=== PATIENT | female | born 1975 ===

== ENCOUNTER 2017-02-03 15:01 | Emergency (ER) | payer MEDICAID, OTHER ==
[2017-02-03 15:01] VITALS: BMI 28.5
[2017-02-03 15:08] VITALS: BP 143/83; PULSE 66; RESP 15; TEMP 98.1; O2SAT 99
--- NOTE | 2017-02-03 15:16 | C.PDOC ---
History Of Present Illness 41 Y/O FEMALE C/O RIGHT LOWER BACK PAIN FOR 3 DAYS. PT REPORTS SIMILAR SYMPTOMS IN THE PAST "GETS IT ONCE IN A WHILE" NOTES SHE STANDS ON HER FEET ALL DAY AND OCCASIONALLY LIFTS HEAVY THINGS. NOTES PAIN RADIATES TO SIDE AND FRONT RIGHT THIGH. UNABLE TO SIT NORMALLY; WORSE WIHT MOVEMENT. DENIES ANY OTHER SYMPTOMS. LIMITED RELIEF WITH ALEVE AND "MUSCLE RELAXANT" GIVEN TO HER BEFORE. NO MEDS TAKEN MOUNTER CLARINETS. Time Seen by Provider: 02/03/17 15:07 Chief Complaint (Nursing): Back Pain History Per: Patient History/Exam Limitations: no limitations Onset/Duration Of Symptoms: Days Current Symptoms Are (Timing): Still Present Quality Of Discomfort: "Pain" Previous Symptoms: None Associated Symptoms: denies: New Weakness, New Numbness Exacerbating Factor(s): Movement Recent travel outside of the [place]: No Past Medical History Reviewed: Historical Data, Nursing Documentation, Vital Signs Vital Signs: Last Vital Signs Temp 98.1 F 02/03/17 15:07 Pulse 66 02/03/17 15:07 Resp 15 02/03/17 15:07 BP 143/83 02/03/17 15:07 Pulse Ox 99 02/03/17 15:16 - Medical History PMH: Gall Bladder Disease (10 yrs ago w/ Sx done) Surgical History: Cholecystectomy (10 years ago) Family History: States: Unknown Family Hx - Social History Hx Tobacco Use: Yes (1/2 pack per day x 15 years) Hx Alcohol Use: Yes Hx Substance Use: No - Immunization History Hx Tetanus Toxoid Vaccination: Yes Hx Influenza Vaccination: Yes Hx Pneumococcal Vaccination: Yes Review Of Systems Except As Marked, All Systems Reviewed And Found Negative. Constitutional: Negative for: Fever, Chills Cardiovascular: Negative for: Chest Pain Respiratory: Negative for: Cough, Shortness of Breath, Wheezing Gastrointestinal: Negative for: Nausea, Vomiting, Abdominal Pain Musculoskeletal: Positive for: Back Pain Skin: Negative for: Rash Neurological: Negative for: Weakness, Numbness Physical Exam - Physical Exam Appears: Non-toxic, No Acute Distress Skin: Normal Color, Warm, Dry Head: Atraumatic, Normacephalic Oral Mucosa: Moist Chest: Symmetrical Cardiovascular: Rhythm Regular Respiratory: Normal Breath Sounds, No Rales, No Rhonchi, No Wheezing Gastrointestinal/Abdominal: Soft, No Tenderness, No Guarding, No Rebound Back: Decreased ROM, Muscle Spasm, Other (GOULD FULL EXTENSION, SPASM) Extremity: Normal ROM, Capillary Refill (< 2 SEC.) Extremity: Bilateral: Normal Color And Temperature Neurological/Psych: Oriented x3, Normal Speech, Normal Cognition ED Course And Treatment O2 Sat by Pulse Oximetry: 99 (RA) Pulse Ox Interpretation: Normal Progress - Data Reviewed Data Reviewed: Old records Disposition Counseled Patient/Family Regarding: Diagnosis, Need For Followup, Rx Given - Disposition Referrals: [facility] [Outside] [facility] [Outside] Disposition: HOME/ ROUTINE Disposition Time: 15:15 Condition: IMPROVED Additional Instructions: continue Aleve as directed. ICE TO AFFECTED AREA. Prescriptions: Acetaminophen/Codeine [Tylenol/Codeine 300 MG/30 MG] 2 tab PO Q6H #20 tab Cyclobenzaprine [Flexeril] 10 mg PO TID #15 tab Dexamethasone 12 mg PO ONCE #2 tablet Lidocaine 5% [Lidoderm] 1 ea TD PRN PRN #10 patch PRN Reason: Pain, Moderate (4-7) Instructions: Sciatica (ED) Forms: [employer] (Serbian), Work Excuse - Clinical Impression Clinical Impression: Sciatica - Scribe Statement The provider has reviewed the documentation as recorded by the Scribe [facility] All medical record entries made by the Scribe were at my direction and personally dictated by me. I have reviewed the chart and agree that the record accurately reflects my personal performance of the history, physical exam, medical decision making, and the department course for this patient. I have also personally directed, reviewed, and agree with the discharge instructions and disposition.
[2017-02-03] MEDS ORDERED: Lidocaine 5% Patch TD STA (15:17)
[2017-02-03] MEDS ORDERED: Lidocaine 5% Patch TD ONE (15:22)
== END 2017-02-03 15:35 | disposition home or self-care (01) ==
LOC: C.ER 15:01
DX: M54.31 Sciatica, right side (principal)
CPT/HCPCS: 96372; 99283; J1885

== ENCOUNTER 2017-06-03 11:30 | Emergency (ER) | payer MEDICAID ==
[2017-06-03 11:30] VITALS: BMI 28.5
[2017-06-03 11:42] VITALS: O2SAT 100
[2017-06-03] MEDS ORDERED: Oxycodone/Acetaminophen 5/325 mg Tab PO STA (12:35)
[2017-06-03] MEDS ORDERED: Lidocaine 5% Patch TD STA (12:35)
--- NOTE | 2017-06-03 12:35 | C.PDOC ---
History Of Present Illness 41 yr old female presents to the ER with complaints of lower back pain for the past 3 days. States the pain is localized to the middle and worse with movement. Patient states normally has right sciatica but none currently. Patient reports was seen by the PMD for same complaint and was given "shot" with minimal relief. Reports minimal relief with flexeril alone. Patient denies trauma, nausea, vomiting, abdominal pain, dysuria, weakness or numbness. LOWER BACK PAIN X 3 DAYS. MIDDLE LOCALIZED. PS NORMALLY HAS R SCIATICA BUT NOT CURRENTLY. SAW PMD FOR SAME, GIVEN "SHOT" W MIN RELIEF. MIN RELIEF W FLEXERIL ALONE. NO TRAUMA. WORSE W MOVEMENT. DENIES OTHER ASSOC SX EXAM MILD DIST NONTOXIC BACK LIMITED ROM DUE TO PAIN. NO FOCAL TEND. +SPASM PARAVERT B/L LOWER. NEURO INTACT Time Seen by Provider: 06/03/17 12:06 Chief Complaint (Nursing): Back Pain History Per: Patient History/Exam Limitations: no limitations Onset/Duration Of Symptoms: Days (3) Current Symptoms Are (Timing): Still Present Past Medical History Reviewed: Historical Data, Nursing Documentation, Vital Signs Vital Signs: Last Vital Signs Temp 98 F 06/03/17 11:39 Pulse 61 06/03/17 11:39 Resp 18 06/03/17 11:39 BP 105/68 06/03/17 11:39 Pulse Ox 100 06/03/17 12:35 - Medical History PMH: Gall Bladder Disease (10 yrs ago w/ Sx done) Surgical History: Cholecystectomy (10 years ago) Family History: States: No Known Family Hx - Social History Hx Tobacco Use: Yes (1/2 pack per day x 15 years) Hx Alcohol Use: No Hx Substance Use: No - Immunization History Hx Tetanus Toxoid Vaccination: Yes Hx Influenza Vaccination: No Hx Pneumococcal Vaccination: No Review Of Systems Except As Marked, All Systems Reviewed And Found Negative. Gastrointestinal: Negative for: Nausea, Vomiting, Abdominal Pain Genitourinary: Negative for: Dysuria Musculoskeletal: Positive for: Back Pain (Lower back pain) Neurological: Negative for: Weakness, Numbness Physical Exam - Physical Exam Appears: Non-toxic, In Acute Distress (Mild) Skin: Warm, Dry, No Rash Head: Atraumatic, Normacephalic Oral Mucosa: Moist Respiratory: Normal Breath Sounds, No Rales, No Rhonchi, No Stridor, No Wheezing Back: Decreased ROM (Limited ROM due to pain), Other (No focal tenderness. + Spasm paravert bilateral lower) Extremity: Normal ROM, No Swelling Neurological/Psych: Oriented x3, Normal Speech, Normal Motor ED Course And Treatment O2 Sat by Pulse Oximetry: 100 (RA) Pulse Ox Interpretation: Normal Medical Decision Making Medical Decision Making: PLAN: * Lidoderm TD * Zofran PO * Toradol IM Disposition Counseled Patient/Family Regarding: Diagnosis, Need For Followup, Rx Given - Disposition Referrals: YOUR,PMD [Other] Disposition: HOME/ ROUTINE Disposition Time: 12:32 Condition: IMPROVED Prescriptions: Acetaminophen/Codeine [Tylenol/Codeine 300 MG/30 MG] 2 tab PO Q6H #20 tab Ibuprofen [Motrin] 600 mg PO Q6 #30 tab Lidocaine 5% [Lidoderm] 1 ea TD PRN PRN #10 patch PRN Reason: Pain, Moderate (4-7) Instructions: Acute Low Back Pain (ED) Forms: [employer] (Turkish) Print Language: PASHTO - Clinical Impression Clinical Impression: Low back pain - Scribe Statement The provider has reviewed the documentation as recorded by the Dottyibellen Gonzáles Provider Attestation: All medical record entries made by the Dottyibellen were at my direction and personally dictated by me. I have reviewed the chart and agree that the record accurately reflects my personal performance of the history, physical exam, medical decision making, and the department course for this patient. I have also personally directed, reviewed, and agree with the discharge instructions and disposition.
[2017-06-03] MEDS ORDERED: Lidocaine 5% Patch TD ONE (12:46)
[2017-06-03] MEDS ORDERED: Oxycodone/Acetaminophen 5/325 mg Tab ONE (12:46)
[2017-06-03 13:26] VITALS: BP 100/63; PULSE 66; RESP 20; TEMP 97.9
== END 2017-06-03 13:26 | disposition home or self-care (01) ==
LOC: C.ER 11:30
DX: M54.5 Low back pain (principal); Z87.891 Personal history of nicotine dependence
CPT/HCPCS: 96372; 99283; J1885

== ENCOUNTER 2017-10-07 17:28 | Emergency (ER) | payer MEDICAID ==
[2017-10-07 17:28] VITALS: BMI 28.5
[2017-10-07 17:39] VITALS: BP 117/78; PULSE 75; TEMP 98.3; O2SAT 98
--- NOTE | 2017-10-07 17:55 | C.PDOC ---
History Of Present Illness 42 year old female presents to the ED c/o right lower back pain for the past 2 days. Patient reports similar symptoms in the past. Patient reports she stands on her feet all day and occasionally lifts heavy objects. Patient reports her pain worsens with movement. Patient reports she uses "muscle relaxant" with minimal relief. Patient has been seen in the ED previously for similar symptoms. Patient denies neck pain, abdominal pain, weakness, numbness, urinary/ bowel incontinence, saddles anesthesia. Time Seen by Provider: 10/07/17 17:51 Chief Complaint (Nursing): Back Pain History Per: Patient History/Exam Limitations: no limitations Onset/Duration Of Symptoms: Days Current Symptoms Are (Timing): Still Present Quality Of Discomfort: "Pain" Previous Symptoms: Back Pain Exacerbating Factor(s): Movement Recent travel outside of the [place]: No Additional History Per: Patient Past Medical History Reviewed: Historical Data, Nursing Documentation, Vital Signs Vital Signs: Last Vital Signs Temp 98.3 F 10/07/17 17:38 Pulse 75 10/07/17 17:38 Resp 20 10/07/17 18:21 BP 117/78 10/07/17 17:38 Pulse Ox 98 10/07/17 18:22 - Medical History PMH: Gall Bladder Disease (10 yrs ago w/ Sx done) Surgical History: Cholecystectomy (10 years ago) Family History: States: Unknown Family Hx - Social History Hx Tobacco Use: Yes (1/2 pack per day x 15 years) Hx Alcohol Use: No Hx Substance Use: No - Immunization History Hx Tetanus Toxoid Vaccination: Yes Hx Influenza Vaccination: No Hx Pneumococcal Vaccination: No Review Of Systems Constitutional: Negative for: Fever, Chills Cardiovascular: Negative for: Chest Pain Respiratory: Negative for: Shortness of Breath Gastrointestinal: Negative for: Abdominal Pain Genitourinary: Negative for: Incontinence Musculoskeletal: Positive for: Back Pain Skin: Negative for: Rash Neurological: Negative for: Weakness, Numbness Physical Exam - Physical Exam Appears: Non-toxic, No Acute Distress Skin: Normal Color, Warm, Dry Head: Atraumatic, Normacephalic Eye(s): bilateral: Normal Inspection Nose: No Discharge Oral Mucosa: Moist Neck: Normal ROM, Supple Gastrointestinal/Abdominal: Soft, No Tenderness, No Guarding, No Rebound Back: No Vertebral Tenderness, Paraspinal Tenderness (right paralumbar), No Straight Leg Raising, Other (no cellulitic component) Extremity: Normal ROM, No Tenderness, No Calf Tenderness, Capillary Refill (< 2 seconds), No Swelling Pulses: Left Dorsalis Pedis: Normal, Right Dorsalis Pedis: Normal Neurological/Psych: Oriented x3, Normal Speech, Normal Cognition, Normal Motor, Normal Sensation Gait: Steady ED Course And Treatment O2 Sat by Pulse Oximetry: 98 (ON RA) Pulse Ox Interpretation: Normal Medical Decision Making Medical Decision Making: Assessment: sciatica Plan: * Tylenol 975 mg PO * Toradol 60 mg IM On reassessment, patient is resting comfortably, and is in no acute distress. Patient was instructed to follow up with physician/clinic in 1-2 days for further evaluation. Disposition Counseled Patient/Family Regarding: Diagnosis, Need For Followup, Rx Given - Disposition Referrals: [facility] [Outside] Disposition: HOME/ ROUTINE Disposition Time: 18:30 Condition: IMPROVED Additional Instructions: follow up with medical clinic in 2 days call to make an appointment take medications as prescribed return to ER if symptoms worsens or progress Prescriptions: Acetaminophen/Codeine [Tylenol/Codeine 300 MG/30 MG] 1 tab PO Q6H PRN #12 tab PRN Reason: Pain, Severe (8-10) Lidocaine 5% [Lidoderm] 1 ea TD DAILY PRN #15 patch PRN Reason: Pain, Moderate (4-7) Naproxen [Naprosyn] 500 mg PO BID PRN #16 tab PRN Reason: Pain, Moderate (4-7) Instructions: Sciatica Forms: Gen Discharge Inst Moldovan, [employer] (Moldovan), Work Excuse Print Language: AZERI - Clinical Impression Clinical Impression: Sciatica - Scribe Statement The provider has reviewed the documentation as recorded by the Scribe Sudarshan Rogers All medical record entries made by the Scribe were at my direction and personally dictated by me. I have reviewed the chart and agree that the record accurately reflects my personal performance of the history, physical exam, medical decision making, and the department course for this patient. I have also personally directed, reviewed, and agree with the discharge instructions and disposition.
[2017-10-07 18:22] VITALS: RESP 20
== END 2017-10-07 18:21 | disposition home or self-care (01) ==
LOC: C.ER 17:28
DX: M54.30 Sciatica, unspecified side (principal)
CPT/HCPCS: 96372; 99284; J1885

== ENCOUNTER 2017-11-11 16:23 | Emergency (ER) | payer MEDICAID ==
[2017-11-11 16:24] VITALS: BMI 28.5
[2017-11-11 16:32] VITALS: BP 119/83; PULSE 68; TEMP 98.8; O2SAT 99
--- NOTE | 2017-11-11 17:18 | C.PDOC ---
History Of Present Illness 66 year old female brought to the ED by EMS with complaints of low thoracic back pain for 1 day. Patient states that when she walking in [place], she fell on her right side. She states that she hurt her right shoulder, right elbow and right knee. Time Seen by Provider: 11/11/17 17:09 Chief Complaint (Nursing): Back Pain History Per: Patient History/Exam Limitations: no limitations Onset/Duration Of Symptoms: Days Current Symptoms Are (Timing): Still Present Past Medical History Reviewed: Historical Data, Nursing Documentation, Vital Signs Vital Signs: Last Vital Signs Temp 98.8 F 11/11/17 16:30 Pulse 68 11/11/17 16:30 Resp 16 11/11/17 17:29 BP 119/83 11/11/17 16:30 Pulse Ox 99 11/11/17 19:14 - Medical History PMH: Gall Bladder Disease (10 yrs ago w/ Sx done) Surgical History: Cholecystectomy (10 years ago) Family History: States: Unknown Family Hx - Social History Hx Tobacco Use: Yes (1/2 pack per day x 15 years) Hx Alcohol Use: No Hx Substance Use: No - Immunization History Hx Tetanus Toxoid Vaccination: Yes Hx Influenza Vaccination: No Hx Pneumococcal Vaccination: No Review Of Systems Except As Marked, All Systems Reviewed And Found Negative. Musculoskeletal: Positive for: Back Pain (full range of motion of the lumber spine flexon and rotation), Other (right buttock discomfort) Physical Exam - Physical Exam Appears: Well, Non-toxic, No Acute Distress Skin: Normal Color, Warm Back: Other (normal right sacral) Neurological/Psych: Oriented x3, Normal Speech ED Course And Treatment O2 Sat by Pulse Oximetry: 99 (RA) Pulse Ox Interpretation: Normal Medical Decision Making Medical Decision Making: mild lower back pain is lower medial sacro-iliac and NOT spinal though pt claims h/o 3 herniated disks in lower spine, no radiology in our System normal lower back movement and FROM, NAD. ?+mild SI tender (mild if any) pt wants work note, refill of T#3 (2 prior visits given same) and eval of her chronic sore throat (benign) Disposition Doctor Will See Patient In The: Office Counseled Patient/Family Regarding: Studies Performed, Diagnosis - Disposition Referrals: Abril Mackay MD [Medical Doctor] - Disposition: HOME/ ROUTINE Disposition Time: 17:17 Condition: GOOD Additional Instructions: ibuprofeno 400-600 mg cada 6 horas patricia necessario para dolor bols[place] de hielo 1/2 hora por hora, NUNCA NADA CALIENTE Sigue con garsia medico. Instructions: Sacroiliac Joint Pain Forms: [employer] (Setswana), Work Excuse Print Language: KENYAN - Clinical Impression Clinical Impression: Sacroiliac pain - Scribe Statement The provider has reviewed the documentation as recorded by the Scribe (Alyssa Castellon) All medical record entries made by the Scribe were at my direction and personally dictated by me. I have reviewed the chart and agree that the record accurately reflects my personal performance of the history, physical exam, medical decision making, and the department course for this patient. I have also personally directed, reviewed, and agree with the discharge instructions and disposition.
[2017-11-11 17:30] VITALS: RESP 16
== END 2017-11-11 17:29 | disposition home or self-care (01) ==
LOC: C.ER 16:23
DX: M53.3 Sacrococcygeal disorders, not elsewhere classified (principal)